=== PATIENT | male | born 1950 | race Caucasian/White ===

== ENCOUNTER 2019-05-19 19:16 | Inpatient (IN) | payer BC, OTHER ==
[~2019-05-19] VITALS: Ht 172.7 cm; Wt 82.6 kg
[~2019-05-19 19:16] MED LIST: BUPR-96 PO; BUPR300T52 PO; ESCI20TA PO; GABA600T PO; QUET100T PO; QUET400T PO; THYROXINE PO
[2019-05-19] MEDS ORDERED: LORAZEPAM 2 MG/1 ML VIAL IV ONE (19:30)
[2019-05-19] MEDS ORDERED: IV NORMAL SALINE 1000 ML BAG IV ONE ×2 (19:30→21:00)
[2019-05-19] MEDS ORDERED: DEXTROSE 50% 50 ML DISP.SYRIN ONE (19:32)
[2019-05-19] MEDS ORDERED: DEXTROSE 50% 50 ML DISP.SYRIN IV ONE (19:45)
[2019-05-19 19:48] LABS: BASOPHILS % (AUTO) 0.2 % (0.0-2.0); HEMOGLOBIN 13.2 g/dL (12.5-16.3); LYMPHOCYTES # (AUTO) 1.1 K/uL (20.0-40.0); MEAN CORPUSCULAR HEMOGLOBIN 33.8 uug (23.8-33.4); MEAN CORPUSCULAR HGB CONC 33 g/dL (32.5-36.3); MEAN CORPUSCULAR VOLUME 102.6 fL (73.0-96.2); MONOCYTES # (AUTO) 0.5 K/uL (2.0-10.0); MONOCYTES % (AUTO) 4.9 % (0.0-11.0); NEUTROPHILS # (AUTO) 8.4 K/uL (1.8-8.9); NEUTROPHILS % (AUTO) 83.9 % (38.5-71.5); PLATELET COUNT (AUTO) 333 K/uL (152-348); WHITE BLOOD COUNT (AUTO) 10.1 K/uL (3.6-10.2)
[2019-05-19] MEDS ORDERED: LORAZEPAM 2 MG/1 ML VIAL ONE ×2 (19:48→23:53)
[2019-05-19 19:59] LABS: *BILIRUBIN,URIN 1+ (NEGATIVE); *BLOOD, URINE 2+ (NEGATIVE); *COLOR,URINE YELLOW (YELLOW); *KETONES,URINE 4+ (NEGATIVE); *UROBILINOGEN,URINE 0.2 E.U./dl (NORMAL); LEUKOCYTE ESTERASE ,URINE NEGATIVE (NEGATIVE); NITRITE, URINE NEGATIVE (NEGATIVE); PH,URINE 5.5 (5.0-8.0); UGLUCOSE NEGATIVE (NEGATIVE)
[2019-05-19 19:59] LABS: ALANINE AMINOTRANSFERASE 29 U/L (16-63); ALKALINE PHOSPHATASE 137 U/L (50-136); ASPARTATE AMINOTRANSFERASE 26 U/L (15-37); BILIRUBIN,DIRECT 0.1 mg/dL (0.0-0.2); BILIRUBIN,TOTAL 0.5 mg/dL (0.2-1.0); CHLORIDE 106 mmol/L (98-107); CREATININE 1.4 mg/dL (0.6-1.3); GLUCOSE 295 mg/dL (74-106); POTASSIUM 4.4 mmol/L (3.5-5.1); TOTAL PROTEIN, SERUM 7.6 g/dL (6.4-8.2); UREA NITROGEN, BLOOD 16 mg/dL (7-18)
[2019-05-19 20:01] LABS: CARBON DIOXIDE 9 mmol/L (21-32); ETHANOL < 3 MG/DL (0-0)
--- NOTE | 2019-05-19 20:01 | NUR ---
received critical lab from [employer]. Dictated lab to Dr. Bhandari of [facility] Bhandari notified and aware.
[2019-05-19 20:02] LABS: ACETAMINOPHEN < 2.0 ug/mL (10-30)
--- NOTE | 2019-05-19 20:05 | NUR ---
RECEIVED INTO ROOM 2A ALERT RESPONSIVE TO YES NO QUESTIONS DENIES HAVING ANY PAIN BREATHING NONLABORED SKIN COLOR PALE SKIN MOIST.
[2019-05-19 20:14] LABS: *AMPHETAMINE, URINE NEGATIVE (NEGATIVE); *BARBITURATE, URINE NEGATIVE (NEGATIVE); *CANNABINOID, URINE NEGATIVE (NEGATIVE); *COCCAINE, URINE NEGATIVE (NEGATIVE); *OPIATE, URINE NEGATIVE (NEGATIVE); *PHENCYCLIDINE SCREEN,URINE NEGATIVE (NEGATIVE)
[2019-05-19 20:18] LABS: *CLARITY,URINE SLIGHTLY HAZY (CLEAR)
[2019-05-19 20:20] LABS: MUCUS,URINE MODERATE /LPF (0-FEW); URINE AMORPHOUS URATE MODERATE /HPF; WBC,URINE 0-3 /HPF (0-3)
[2019-05-19 20:29] LABS: THYROID STIMULATING HORMONE 1.541 mIU/mL (0.358-3.740)
[2019-05-19] MEDS ORDERED: PIPERACILLIN SODIUM/TAZOBACTAM 3.375 G in IV DEXTROSE 5% 50 ML IV ONE (20:30)
--- NOTE | 2019-05-19 20:30 | NUR ---
PATIENT CONTINUES TO BE ALERT WILL RESPOND TO HIS NAME UNABLE TO STATE WHERE HE IS ,OR WHAT HAPPENED TO HIM TODAY THAT BROUGHT HIM TO THE ER.
--- NOTE | 2019-05-19 20:46 | NUR ---
Unable to get list of patient's medications. Needs follow up with spouse.
[2019-05-19 20:53] LABS: ABG BASE EXCESS -15.2 mmol/L; ABG PCO2 19.3 mmHg (35.0-45.0); ABG PH 7.288 (7.350-7.450); ABG SITE RIGHT BRACHIAL; ABG TOTAL HEMOGLOBIN 14.1 G/dL (13.5-18.0); COHb 1.2 % (0.5-1.5); MetHb 0.2 % (0.0-1.5); O2Hb 96.2 % (94.0-97.0)
[2019-05-19] MEDS ORDERED: IV D5W-0.45% NS +20 KCL 1,000 ML IV ONE ×2 (20:59→21:00)
[2019-05-19] MEDS ORDERED: INSULIN REGULAR, HUMAN 100 UNITS in IV NORMAL SALINE 100 ML IV ONE ×2 (21:00)
--- NOTE | 2019-05-19 21:13 | NUR ---
Dr. Bhandari on panel call with Dr. Linda. Patient accepted for admission to CCU, diagnosis DKA.
--- NOTE | 2019-05-19 21:15 | NUR ---
Per Checkroom Chief, CCU is closed, patient to stay in ER until a CCU nurse is available.
[2019-05-19] MEDS ORDERED: INSULIN REGULAR, HUMAN 300 UNIT/3 ML VIAL ONE (21:24)
[2019-05-19] MEDS ORDERED: MODA100T14 PO (21:40)
[2019-05-19] MEDS ORDERED: OXYC-133 PO (21:40)
[2019-05-19] MEDS ORDERED: LAMO200T10 PO (21:40)
--- NOTE | 2019-05-19 21:40 | NUR ---
MEDICATION RECONCILIATION NOTE: Spouse was able to bring in medication bottles from home. She states that there may be other medications but she is not sure. Unable to verify if Seroquel (AM dose), and Wellbutrin (PM dose) listed on previous reconciliation.
[2019-05-19] MEDS ORDERED: IV D5W 1000ML 1,000 ML IV ONE (22:15)
[2019-05-19] MEDS ORDERED: ONDANSETRON 4 MG/2 ML VIAL IV PRN (23:00)
[2019-05-19] MEDS ORDERED: Z GUARD REMEDY PASTE 57 GM TUBE TOP PRN (23:00)
[2019-05-19 23:04] LABS: CREATININE 1.4 mg/dL (0.6-1.3)
[2019-05-19 23:13] LABS: ABG HCO3 10.8 mmol/L; ABG PH 7.331 (7.350-7.450); ABG SITE RIGHT BRACHIAL; ABG TOTAL HEMOGLOBIN 12.5 G/dL (13.5-18.0); MetHb 0.2 % (0.0-1.5); O2Hb 95.6 % (94.0-97.0)
[2019-05-19] MEDS ORDERED: INSULIN REGULAR, HUMAN 100 UNIT in IV NORMAL SALINE 99 ML IV PRN ×2 (23:15)
--- NOTE | 2019-05-19 23:15 | NUR ---
PATIENT HAS COMPLETED 1 LITER D5.45+ 20KCL AND 2 LITERS 0.9NS. RECEIVING INSULIN DRIP @1.6 UNITS/HR. LABS REDRAWN.
--- NOTE | 2019-05-19 23:43 | NUR ---
PATIENT ADMITTED TO ICU STATUS
[2019-05-20] VITALS (24 sets, daily range): BP systolic 108–159; BP diastolic 58–90
[2019-05-20] MEDS ORDERED: LORAZEPAM 2 MG/1 ML VIAL IV ONE
--- NOTE | 2019-05-20 00:24 | NUR ---
REPORT GIVEN TO RENNY WAYNE TO KARLIE WITH CARE FOR PATIENT.
[2019-05-20 01:27] LABS: CARBON DIOXIDE 17 mmol/L (21-32); CHLORIDE 111 mmol/L (98-107); CREATININE 1.4 mg/dL (0.6-1.3); GLUCOSE 101 mg/dL (74-106); POTASSIUM 3.7 mmol/L (3.5-5.1); UREA NITROGEN, BLOOD 14 mg/dL (7-18)
[2019-05-20] MEDS: IV D5 1/2 NS 1000 ML 1,000 ML IV PRN ×3 (01:51→19:01)
--- NOTE | 2019-05-20 03:00 | NUR ---
Unable to insert Wang.
--- NOTE | 2019-05-20 04:00 | NUR ---
Answers all questions saying 'yes.' Does not follow directions. Very active in bed, removing equipment.
[2019-05-20 05:33] LABS: BASOPHILS # (AUTO) 0.1 K/uL (0.0-8.0); BASOPHILS % (AUTO) 0.9 % (0.0-2.0); EOSINOPHILS % (AUTO) 0.3 % (0.0-7.0); HEMATOCRIT 36.7 % (36.7-47.1); HEMOGLOBIN 12.3 g/dL (12.5-16.3); LYMPHOCYTES # (AUTO) 1.6 K/uL (20.0-40.0); LYMPHOCYTES % (AUTO) 14.3 % (20.5-51.5); MEAN CORPUSCULAR HEMOGLOBIN 33.4 uug (23.8-33.4); MEAN CORPUSCULAR HGB CONC 34 g/dL (32.5-36.3); MEAN CORPUSCULAR VOLUME 99.5 fL (73.0-96.2); MONOCYTES % (AUTO) 9.2 % (0.0-11.0); NEUTROPHILS # (AUTO) 8.2 K/uL (1.8-8.9); NEUTROPHILS % (AUTO) 75.3 % (38.5-71.5); PLATELET COUNT (AUTO) 341 K/uL (152-348); RED BLOOD CELL COUNT(AUTO) 3.69 MIL/uL (4.06-5.63); WHITE BLOOD COUNT (AUTO) 10.9 K/uL (3.6-10.2)
[2019-05-20 05:49] LABS: BILIRUBIN,TOTAL 0.4 mg/dL (0.2-1.0); CREATININE 1.2 mg/dL (0.6-1.3); MAGNESIUM 1.8 mg/dL (1.8-2.4); POTASSIUM 3.8 mmol/L (3.5-5.1); TOTAL PROTEIN, SERUM 7.4 g/dL (6.4-8.2)
[2019-05-20 06:11] LABS: THYROID STIMULATING HORMONE 2.071 mIU/mL (0.358-3.740)
--- NOTE | 2019-05-20 08:00 | NUR ---
Report received from RENNY Newby.Pt Remains in bilateral soft restraints ,pulling cables from monitor out,trying to get out of bed.Move all extremities.No neuro deficit noted.Pt answered "yes" to every question.Will continue to monitor.
[2019-05-20] MEDS: LORAZEPAM 2 MG/1 ML VIAL IV PRN ×4 (08:46→22:10)
--- NOTE | 2019-05-20 10:00 | NUR ---
Seen,examined by .
[2019-05-20] MEDS ORDERED: HALOPERIDOL LACTATE 5 MG/1 ML VIAL IM PRN (10:15)
[2019-05-20] MEDS: POTASSIUM PHOSPHATE MM 7.5 MMOL in IV DEXTROSE 5% 100 ML IV SCH ×2 (10:53→14:00)
--- NOTE | 2019-05-20 12:20 | NUR ---
Seen,examined by .
[2019-05-20] MEDS: FOLIC ACID 1 MG in IV DEXTROSE 5% 50 ML IV SCH (12:39)
[2019-05-20] MEDS: THIAMINE HCL INJ 100 MG in IV DEXTROSE 5% 50 ML IV SCH (12:39)
--- NOTE | 2019-05-20 13:50 | NUR ---
Pt ex at bedside.Updated on pt status.
--- NOTE | 2019-05-20 14:00 | NUR ---
Pt noted with agitation prior to urination.Updated .
[2019-05-21] VITALS (25 sets, daily range): BP systolic 95–198; BP diastolic 43–112
[2019-05-21] MEDS: LORAZEPAM 2 MG/1 ML VIAL IV PRN ×6 (01:56→23:12)
[2019-05-21] MEDS: IV D5 1/2 NS 1000 ML 1,000 ML IV PRN ×2 (02:36→10:32)
[2019-05-21] MEDS: hydrALAZINE HCL 20 MG/1 ML VIAL IV PRN ×4 (02:50→23:43)
--- NOTE | 2019-05-21 09:30 | NUR ---
Pt noted to be extremely agitated, restless trying to get oob. IV ativan given PRN as ordered.
--- NOTE | 2019-05-21 09:44 | NUR ---
Reassessment: Pt noted to be more calm, relaxed. IV ativan proven effective. Will continue to monitor.
--- NOTE | 2019-05-21 09:55 | NUR ---
Dr. Linda here to see pt. Full report given. New orders received.
[2019-05-21 10:43] LABS: BASOPHILS # (AUTO) 0.1 K/uL (0.0-8.0); BASOPHILS % (AUTO) 0.9 % (0.0-2.0); EOSINOPHILS % (AUTO) 0.3 % (0.0-7.0); HEMATOCRIT 36.6 % (36.7-47.1); HEMOGLOBIN 12.2 g/dL (12.5-16.3); LYMPHOCYTES # (AUTO) 2.1 K/uL (20.0-40.0); LYMPHOCYTES % (AUTO) 19.9 % (20.5-51.5); MEAN CORPUSCULAR HEMOGLOBIN 33.5 uug (23.8-33.4); MEAN CORPUSCULAR HGB CONC 33 g/dL (32.5-36.3); MEAN CORPUSCULAR VOLUME 100.2 fL (73.0-96.2); MONOCYTES # (AUTO) 1.4 K/uL (2.0-10.0); NEUTROPHILS # (AUTO) 6.9 K/uL (1.8-8.9); NEUTROPHILS % (AUTO) 65.9 % (38.5-71.5); PLATELET COUNT (AUTO) 188 K/uL (152-348); RED BLOOD CELL COUNT(AUTO) 3.65 MIL/uL (4.06-5.63); WHITE BLOOD COUNT (AUTO) 10.5 K/uL (3.6-10.2)
[2019-05-21 10:54] LABS: BILIRUBIN,TOTAL 0.6 mg/dL (0.2-1.0); CREATININE 0.7 mg/dL (0.6-1.3); POTASSIUM 3.2 mmol/L (3.5-5.1); TOTAL PROTEIN, SERUM 6.6 g/dL (6.4-8.2)
[2019-05-21] MEDS: FOLIC ACID 1 MG in IV DEXTROSE 5% 50 ML IV SCH (11:19)
[2019-05-21] MEDS: THIAMINE HCL INJ 100 MG in IV DEXTROSE 5% 50 ML IV SCH (12:59)
--- NOTE | 2019-05-21 13:00 | NUR ---
Dr. Quiroz (psych) here to see pt. Full report given. No new orders received. Addendum: 05/21/19 at 1314 by JORGE RODRIGUEZ RN New orders received.
[2019-05-21] MEDS: OLANZAPINE 10 MG VIAL IM PRN ×2 (13:56→19:11)
--- NOTE | 2019-05-21 14:22 | NUR ---
At 1356, pt noted to severely restless, agitated trying to get oob. IM Zyprexa prn given as ordered. Reassessment: Pt noted to be more calm, relaxed. IM Zyprexa proven effective. Will continue to monitor.
[2019-05-21] MEDS: VALPROATE SODIUM IV 250 MG in IV DEXTROSE 5% 100 ML IV SCH ×2 (14:33→22:28)
[2019-05-21] MEDS ORDERED: SODIUM PHOSPHATE MM 15 MM in IV DEXTROSE 5% 250 ML IV ONE (17:00)
--- NOTE | 2019-05-21 19:09 | NUR ---
Dr. Snell here to see pt. Full report given. New orders received. Pt to have spinal tap tomorrow per .
--- NOTE | 2019-05-21 19:12 | NUR ---
Per Dr. Channing scanlon to give IM Zyprexa dose now.
--- NOTE | 2019-05-21 19:19 | NUR ---
Pt noted to be severely restless, agitated trying to get oob. IM Zypreza given prn as ordered. Will reassess for effectiveness.
--- NOTE | 2019-05-21 19:25 | NUR ---
Report received from Sherwin LAWSON. Seen by Dr. Snell; plan of care discussed. 's telephone number given to MD. Patient remains extremely restless, confused. No appropriate verbal responses. With 4 points soft restraints for safety.
--- NOTE | 2019-05-21 19:40 | NUR ---
Radha here. Informed of Dr. Snell's plan of care. Consent for both MRI and Spinal tap signed by her.
--- NOTE | 2019-05-21 20:14 | NUR ---
Medicated with Ativan for extreme restlessness. [employer] aware.
--- NOTE | 2019-05-21 21:00 | NUR ---
Incontinent of large brown BM. Ativan IV with little effect. Bath given. Patient remains very confused; only says "okay, okay" when asked and talked to. Safety and fall precautions maintained.
--- NOTE | 2019-05-21 21:45 | NUR ---
Spoke to Justin @ [facility] re: MRI order. Informed of patient 's status and Spinal tap in am.
[2019-05-21] MEDS: POTASSIUM CHLORIDE 50 ML IV SCH (23:42)
[2019-05-22] VITALS (21 sets, daily range): BP systolic 127–169; BP diastolic 56–99
[2019-05-22] MEDS: POTASSIUM CHLORIDE 50 ML IV SCH ×9 (00:47→22:11)
[2019-05-22] MEDS: LORAZEPAM 2 MG/1 ML VIAL IV PRN ×5 (01:29→20:12)
[2019-05-22 05:13] LABS: CARBON DIOXIDE 24 mmol/L (21-32); CHLORIDE 109 mmol/L (98-107); CREATININE 0.6 mg/dL (0.6-1.3); GLUCOSE 111 mg/dL (74-106); PHOSPHOROUS 2.5 mg/dL (2.5-4.9); POTASSIUM 2.9 mmol/L (3.5-5.1); UREA NITROGEN, BLOOD 8 mg/dL (7-18)
[2019-05-22] MEDS: IV D5 1/2 NS 1000 ML 1,000 ML IV PRN (05:30)
[2019-05-22] MEDS: VALPROATE SODIUM IV 250 MG in IV DEXTROSE 5% 100 ML IV SCH ×2 (06:37→14:43)
--- NOTE | 2019-05-22 08:34 | NUR ---
Dr. Linda here to see pt. Full report given. New orders received.
[2019-05-22] MEDS: OLANZAPINE 10 MG VIAL IM PRN (10:09)
--- NOTE | 2019-05-22 10:17 | NUR ---
Pt noted to be severely agitated, restless trying to get oob. IM zyprexa given prn as ordered. Will reassess for effectiveness. Full SBAR report also given to ambulance. Pt to have MRI done at [place].
--- NOTE | 2019-05-22 10:45 | NUR ---
Pt left with ambulance for MRI brain at [place]. JEROME cravenl.
--- NOTE | 2019-05-22 11:43 | NUR ---
Pt returned from MRI VSS wnl. Unable to perform MRI at this time d/t pt's severe agitation and restlessness. Dr. Snell contacted and made aware.
[2019-05-22] MEDS: THIAMINE HCL INJ 100 MG in IV DEXTROSE 5% 50 ML IV SCH (13:31)
[2019-05-22] MEDS: FOLIC ACID 1 MG in IV DEXTROSE 5% 50 ML IV SCH (14:04)
--- NOTE | 2019-05-22 15:33 | NUR ---
Spoke with Dr. Snell on the telephone. MD motta to give IV Ativan 2mg in preparation for LP procedure.
[2019-05-22] MEDS ORDERED: LIDOCAINE HCL 1% 20 ML VIAL ONE (15:42)
--- NOTE | 2019-05-22 16:00 | NUR ---
LP puncture performed at the bedside by Dr. Snell unsuccessful. Pt to have XR lumbar puncture with radiologist.
--- NOTE | 2019-05-22 16:34 | NUR ---
Spoke with Dr. Quiroz on the telephone. Full report given. New orders received.
[2019-05-22 18:26] LABS: CREATININE 0.7 mg/dL (0.6-1.3); MAGNESIUM 1.3 mg/dL (1.8-2.4); POTASSIUM 3.3 mmol/L (3.5-5.1)
[2019-05-22] MEDS: hydrALAZINE HCL 20 MG/1 ML VIAL IV PRN (19:40)
[2019-05-22] MEDS: MAGNESIUM SULFATE/D5W 100 ML IV SCH ×2 (21:11→22:56)
[2019-05-22] MEDS: VALPROATE SODIUM IV 500 MG in IV DEXTROSE 5% 100 ML IV SCH (21:30)
[2019-05-23] VITALS (21 sets, daily range): BP systolic 114–183; BP diastolic 71–103
[2019-05-23] MEDS: POTASSIUM CHLORIDE 50 ML IV SCH ×6 (00:04→12:00)
--- NOTE | 2019-05-23 01:00 | NUR ---
Noted extending light rash noted to entire back; see photograph.
[2019-05-23] MEDS: LORAZEPAM 2 MG/1 ML VIAL IV PRN ×3 (01:13→11:49)
[2019-05-23] MEDS: IV D5 1/2 NS 1000 ML 1,000 ML IV PRN ×3 (02:07→12:43)
[2019-05-23] MEDS: hydrALAZINE HCL 20 MG/1 ML VIAL IV PRN ×2 (03:26→16:24)
[2019-05-23 04:56] LABS: BASOPHILS % (AUTO) 0.4 % (0.0-2.0); EOSINOPHILS # (AUTO) 0.1 K/uL (0.0-0.7); EOSINOPHILS % (AUTO) 0.9 % (0.0-7.0); HEMATOCRIT 34.4 % (36.7-47.1); HEMOGLOBIN 11.6 g/dL (12.5-16.3); LYMPHOCYTES % (AUTO) 18.6 % (20.5-51.5); MEAN CORPUSCULAR HEMOGLOBIN 32.9 uug (23.8-33.4); MEAN CORPUSCULAR HGB CONC 34 g/dL (32.5-36.3); MEAN CORPUSCULAR VOLUME 97.7 fL (73.0-96.2); MONOCYTES # (AUTO) 1.4 K/uL (2.0-10.0); MONOCYTES % (AUTO) 12.7 % (0.0-11.0); NEUTROPHILS # (AUTO) 7.2 K/uL (1.8-8.9); NEUTROPHILS % (AUTO) 67.4 % (38.5-71.5); PLATELET COUNT (AUTO) 275 K/uL (152-348); RED BLOOD CELL COUNT(AUTO) 3.52 MIL/uL (4.06-5.63); WHITE BLOOD COUNT (AUTO) 10.7 K/uL (3.6-10.2)
[2019-05-23 05:47] LABS: ALANINE AMINOTRANSFERASE 49 U/L (16-63); ALKALINE PHOSPHATASE 131 U/L (50-136); ASPARTATE AMINOTRANSFERASE 52 U/L (15-37); BILIRUBIN,TOTAL 0.8 mg/dL (0.2-1.0); CARBON DIOXIDE 25 mmol/L (21-32); CHLORIDE 108 mmol/L (98-107); CREATININE 0.6 mg/dL (0.6-1.3); GLUCOSE 119 mg/dL (74-106); PHOSPHOROUS 2.5 mg/dL (2.5-4.9); POTASSIUM 3.4 mmol/L (3.5-5.1); TOTAL PROTEIN, SERUM 6.9 g/dL (6.4-8.2); UREA NITROGEN, BLOOD 7 mg/dL (7-18)
[2019-05-23] MEDS: VALPROATE SODIUM IV 500 MG in IV DEXTROSE 5% 100 ML IV SCH ×3 (05:55→21:31)
--- NOTE | 2019-05-23 07:15 | NUR ---
Received report from cleaning matron nurse, patient in bed awake thrashing in bed, on wrist restraints and mittens. Sitter at bedside for safety. Monitor shows sinus rhythm, when patient is still. [id number] 100% on room air. Will continue to monitor. IV fluids running.
--- NOTE | 2019-05-23 08:00 | NUR ---
Dr. Linda assessment of patient.
--- NOTE | 2019-05-23 08:45 | NUR ---
Received orders from Dr. Quiroz for xyprexa SL 5mg once after results of stat ekg given to her.
[2019-05-23] MEDS ORDERED: OLANZAPINE ZYDIS 5 MG TAB.RAPDIS SL STA (08:51)
--- NOTE | 2019-05-23 11:05 | NUR ---
Code owen called due to patient climbing out of bed, pulling at lines.
[2019-05-23] MEDS: THIAMINE HCL INJ 100 MG in IV DEXTROSE 5% 50 ML IV SCH (12:02)
[2019-05-23] MEDS: FOLIC ACID 1 MG in IV DEXTROSE 5% 50 ML IV SCH (12:02)
--- NOTE | 2019-05-23 13:00 | NUR ---
Dr Quiroz saw patient.
[2019-05-23] MEDS: OLANZAPINE ZYDIS 5 MG TAB.RAPDIS SL SCH ×2 (13:02→16:53)
--- NOTE | 2019-05-23 13:10 | NUR ---
Patient aggitated again and trying to climb out of bed and pulling at lines. Security called to help patient back to bed safely.
--- NOTE | 2019-05-23 16:25 | NUR ---
Patient reported being sick to his stomach zofran to be given.
--- NOTE | 2019-05-23 18:38 | NUR ---
Patient continues to be confused, but with more of a vocabulary noted than this morning. Patient recognizes by name. Patient has difficulty urinating and becomes aggressive and thrashing around in bed when he needs to urinate. Patient had multiple episodes of confusion and trying to pull lines and get out of bed. During one episode patient noted to not be able to stand independently and stumbling once he was up on his feet despite being able to get up to the side of the bed. Vitals are stable at this time, afebrile throughout the day and patient tolerating zyprexa sublingual. Frequent reorientation and skin care provided throughout shift.
[2019-05-23] MEDS: OLANZAPINE ZYDIS 5 MG TAB.RAPDIS SL PRN (21:58)
[2019-05-24] VITALS (10 sets, daily range): BP systolic 114–161; BP diastolic 56–111
--- NOTE | 2019-05-24 00:02 | NUR ---
PATIENT SITTING IN ROOM, WATCHING PATIENT, PATIENT SUDDENLY AWAKENED AND REQUESTED TO GO TO BATHROOM. LAST NIGHT PATIENT EXPERIENCED MULTIPLE EPISODES OF URINARY URGENCY. DURING THIS TIME, PATIENT REMOVED HIS HOSPITAL GOWN, WELL MONITORING WIRES FOR HOSPITAL EQUIPMENT. UPON ATTEMPTING TO REAPPLY WIRES, PATIENT BECAME FRUSTRATED AND STATED " NO, FOLLOWED BY F CK ! " WHILE ATTEMPTING TO GET OF BED, PATIENT VERY UNSTEADY ON HIS FEET, I ATTEMPTED TO LIGHTLY HOLD PATIENTS ELBOW TO PREVENT FROM FALLING, PATIENT STATED " DONT' TOUCH ME " CODE KRISTAL HAD TO BE CALLED TO PREVENT INJURY TO PATIENT AND PROVIDE ASSISTANCE TO GET PATIENT BACK INTO BED.
[2019-05-24] MEDS: OLANZAPINE 10 MG VIAL IM PRN (01:16)
--- NOTE | 2019-05-24 04:30 | NUR ---
PATIENT AWAKE THIS MORNING AND ALERT AND ORIENTED X 2. PATIENT REQUESTING FOR CLOTHES, COFFEE AND WANTING TO CALL . ALSO VERBALZED WANTING TO GO HOME NOW. PATIENT REORIENTED TO TIME, AND PLAN OF CARE. REQUIRED CONSTANT REDIRECTION TO PLAN OF CARE.
[2019-05-24 05:19] LABS: BASOPHILS % (AUTO) 0.3 % (0.0-2.0); EOSINOPHILS # (AUTO) 0.3 K/uL (0.0-0.7); EOSINOPHILS % (AUTO) 3.1 % (0.0-7.0); HEMATOCRIT 35.2 % (36.7-47.1); LYMPHOCYTES # (AUTO) 2.3 K/uL (20.0-40.0); MEAN CORPUSCULAR HEMOGLOBIN 33.5 uug (23.8-33.4); MEAN CORPUSCULAR HGB CONC 34 g/dL (32.5-36.3); MEAN CORPUSCULAR VOLUME 98.6 fL (73.0-96.2); MONOCYTES # (AUTO) 1.1 K/uL (2.0-10.0); MONOCYTES % (AUTO) 10.5 % (0.0-11.0); NEUTROPHILS # (AUTO) 6.4 K/uL (1.8-8.9); NEUTROPHILS % (AUTO) 63.1 % (38.5-71.5); PLATELET COUNT (AUTO) 283 K/uL (152-348); RED BLOOD CELL COUNT(AUTO) 3.57 MIL/uL (4.06-5.63); WHITE BLOOD COUNT (AUTO) 10.1 K/uL (3.6-10.2)
[2019-05-24] MEDS: VALPROATE SODIUM IV 500 MG in IV DEXTROSE 5% 100 ML IV SCH ×3 (06:00→22:12)
[2019-05-24] MEDS: OLANZAPINE ZYDIS 5 MG TAB.RAPDIS SL PRN (06:59)
[2019-05-24] MEDS: LORAZEPAM 2 MG/1 ML VIAL IV PRN ×2 (07:08→22:30)
--- NOTE | 2019-05-24 07:08 | NUR ---
Received report from night filler nurse as patient was flailing and trying to get out of bed and being verbally abusive and aggitated. Ativan given to relieve aggitation. Patients vitals recorded, and patient was settled back into bed. Patient is on room air satting 100%, BP 157/74, pulse 68 Respirations 16.
[2019-05-24] MEDS: hydrALAZINE HCL 20 MG/1 ML VIAL IV PRN (08:52)
[2019-05-24 09:00] LABS: CREATININE 0.7 mg/dL (0.6-1.3); POTASSIUM 4.1 mmol/L (3.5-5.1)
[2019-05-24 09:03] LABS: PHOSPHOROUS 3.9 mg/dL (2.5-4.9)
[2019-05-24] MEDS: OLANZAPINE ZYDIS 5 MG TAB.RAPDIS SL SCH ×3 (09:18→17:13)
[2019-05-24] MEDS ORDERED: LORAZEPAM 2 MG/1 ML VIAL IV ONE (10:00)
--- NOTE | 2019-05-24 10:00 | NUR ---
Patient taken to radiology for lumbar puncture with Dr. Raza accompanied by this publications writer, respiratory and two Radiology techs. Vitals stable but patient anxious and agitated for procedure. Order received for 2mg ativan from Dr. Snell.
--- NOTE | 2019-05-24 10:50 | NUR ---
Patient returned to CCU, vitals stable, patient alert/oriented x2. All needs met at this time.
--- NOTE | 2019-05-24 10:57 | NUR ---
Patient seen by speech therapy.
[2019-05-24] MEDS: FOLIC ACID 1 MG in IV DEXTROSE 5% 50 ML IV SCH (11:21)
[2019-05-24] MEDS: THIAMINE HCL INJ 100 MG in IV DEXTROSE 5% 50 ML IV SCH (11:22)
[2019-05-24 11:24] LABS: CSF PROTEIN 90 mg/dL (15-45)
[2019-05-24 11:25] LABS: CSF GLUCOSE 53 mg/dL (40-70)
[2019-05-24] MEDS: METOPROLOL TARTRATE 25 MG TABLET PO SCH ×2 (12:17→21:00)
--- NOTE | 2019-05-24 12:45 | NUR ---
Patient seen by Dr. Quiroz. Patient sleeping and didn't respond much.
--- NOTE | 2019-05-24 14:00 | NUR ---
Patient had small amount of his lunch. Tolerated well, but did not have much of an appetite.
[2019-05-24] MEDS: KETOROLAC TROMETHAMINE 15 MG INJ IVP PRN (17:12)
--- NOTE | 2019-05-24 19:27 | NUR ---
PATIENT TRANSFERRED TO MED/SURG FLOOR AND REPORT GIVEN TO TAMMY. PATIENT IS ON ROOM AIR. PATIENT IS IN BED, NO DISTRESS NOTED AT THIS TIME, BED IN LOW POSITION, SIDE RAILS UP X2, SITTER AT BEDSIDE. IV FLUIDS ENDORSED TO NOVELTY WORKER NURSE. IMPULSIVE BEHAVIOR EXPLAINED TO SITTER AND NURSE.
--- NOTE | 2019-05-24 20:00 | NUR ---
Received patient in bed. Slightly restless, but able to redirect. Sitter at bedside. Full report received from ICU nurse. No signs of active distress. Will continue to reinforce relaxation techniques. Fall and safety precautions maintained.
[2019-05-24] MEDS: OMEGA-3 FATTY ACIDS/FISH OIL CAPSULE PO SCH (21:00)
[2019-05-24] MEDS: ATORVASTATIN 20 MG TABLET PO SCH (21:00)
--- NOTE | 2019-05-24 21:00 | NUR ---
Pt noted to have pulled out his midline on R AC. Reinserted new peripheral IV site on L forearm 20 G. Continued relaxation techniques. Sitter to continue teaching and monitoring.
[2019-05-24] MEDS: IV D5 1/2 NS 1000 ML 1,000 ML IV PRN (21:02)
--- NOTE | 2019-05-24 22:30 | NUR ---
Pt continues to be restless in bed. Unable to redirect at this time, verbalizing plans for elopement. Lorazepam 1mg given. Will continue to monitor.
--- NOTE | 2019-05-25 01:45 | NUR ---
Pt continues to be intermittently laying in bed and being restless and wanting to get out of bed. Assisted to bathroom, with one person standby assist. Noted with severe pain during movement and ambulation. Assisted back to bed. Remains unable to keep still. Ativan and Toradol will be administered as ordered.
[2019-05-25] MEDS: LORAZEPAM 2 MG/1 ML VIAL IV PRN ×2 (01:56→05:12)
[2019-05-25] MEDS: KETOROLAC TROMETHAMINE 15 MG INJ IVP PRN (01:56)
[2019-05-25 04:00] VITALS: BP 140/75
[2019-05-25] MEDS: VALPROATE SODIUM IV 500 MG in IV DEXTROSE 5% 100 ML IV SCH (05:07)
--- NOTE | 2019-05-25 05:15 | NUR ---
Pt given another dose of Ativan 1 mg at this time due to continued restlessness in bed. Pt did not sleep all night. Will monitor effectiveness. Sitter continues to monitor and redirect patient's behavior.
--- NOTE | 2019-05-25 06:15 | NUR ---
Pt pulled out IV again accidentally as he was rolling into bed. Complete linen care done. Cleaned patient, kept clean and dry. Inserted new line on R wrist [address], continued teaching to prevent injury. Pt only able to sleep 1-2 hours during the night. Will continue to monitor and endorse accordingly.
[2019-05-25 06:39] LABS: BASOPHILS % (AUTO) 0.3 % (0.0-2.0); EOSINOPHILS # (AUTO) 0.3 K/uL (0.0-0.7); EOSINOPHILS % (AUTO) 3.6 % (0.0-7.0); HEMATOCRIT 35.9 % (36.7-47.1); LYMPHOCYTES # (AUTO) 2.6 K/uL (20.0-40.0); MEAN CORPUSCULAR HEMOGLOBIN 33.2 uug (23.8-33.4); MEAN CORPUSCULAR HGB CONC 33 g/dL (32.5-36.3); MEAN CORPUSCULAR VOLUME 99.3 fL (73.0-96.2); MONOCYTES # (AUTO) 1.1 K/uL (2.0-10.0); NEUTROPHILS # (AUTO) 4.4 K/uL (1.8-8.9); NEUTROPHILS % (AUTO) 52.1 % (38.5-71.5); PLATELET COUNT (AUTO) 290 K/uL (152-348); RED BLOOD CELL COUNT(AUTO) 3.61 MIL/uL (4.06-5.63); WHITE BLOOD COUNT (AUTO) 8.4 K/uL (3.6-10.2)
[2019-05-25 06:49] LABS: BILIRUBIN,TOTAL 0.8 mg/dL (0.2-1.0); CREATININE 0.7 mg/dL (0.6-1.3); PHOSPHOROUS 3.8 mg/dL (2.5-4.9); POTASSIUM 3.6 mmol/L (3.5-5.1); TOTAL PROTEIN, SERUM 6.9 g/dL (6.4-8.2)
--- NOTE | 2019-05-25 07:52 | NUR ---
Received patient in bed. Slightly restless, but able to redirect. Sitter at bedside. Full report received from night warehouse selector nurse. No signs of active distress or sob. Will continue to reinforce relaxation techniques. Fall and safety precautions maintained.
[2019-05-25 08:00] VITALS: BP 158/85
[2019-05-25] MEDS ORDERED: POTASSIUM CHLORIDE 20 MEQ TAB.PRT.SR PO ONE (09:00)
[2019-05-25] MEDS: OMEGA-3 FATTY ACIDS/FISH OIL CAPSULE PO SCH ×2 (09:32→21:23)
[2019-05-25] MEDS: OLANZAPINE ZYDIS 5 MG TAB.RAPDIS SL SCH ×2 (09:32→12:30)
[2019-05-25] MEDS: METOPROLOL TARTRATE 25 MG TABLET PO SCH ×2 (09:35→21:23)
[2019-05-25 12:00] VITALS: BP 138/72
[2019-05-25] MEDS: FOLIC ACID 1 MG TABLET PO SCH (12:30)
[2019-05-25] MEDS: THIAMINE HCL 100 MG TABLET PO SCH (12:30)
--- NOTE | 2019-05-25 13:00 | NUR ---
PT IS RESTING COMFORTABLY. NO ACUTE DISTRESS OR SOB NOTED. PT HAS A 1:1 SITTER FOR SAFETY. PT SOMEWHAT CONFUSED WITH TENDENCY TO REMOVE IV LINE. PT TAKES MEDICATION WITH APPLE SAUCE OR PUDDING. PT IS ON A PUREED DIET. WILL CONTINUE TO MONITOR.
[2019-05-25] MEDS ORDERED: DIVALPROEX 500 MG TABLET.DR PO SCH (14:00)
[2019-05-25] MEDS ORDERED: DIVALPROEX SPRINKLE 125 MG CAP.SPRINK PO SCH (15:30)
[2019-05-25 16:00] VITALS: BP 137/76
[2019-05-25] MEDS: BENZTROPINE MESYLATE 0.5 MG TABLET PO SCH ×2 (17:15→21:18)
[2019-05-25] MEDS: DIVALPROEX SPRINKLE 125 MG CAP.SPRINK PO SCH ×2 (17:15→21:19)
[2019-05-25] MEDS: HALOPERIDOL LACTATE 10 MG/5 ML ORAL SOLUTION UDC PO SCH ×2 (17:15→21:24)
--- NOTE | 2019-05-25 18:00 | NUR ---
PT RESTING COMFORTABLY IN BED. IV SITE CHANGED TO R HAND GAUGE 22. NO ACUTE DISTRESS NOTED NO SOB NOTED. PT HAS A 1:1 SITTER FOR SAFETY. PSYCHIATRIST EVALUATED PT. CALL LIGHT WITHIN REACH. SAFETY MEASURES IMPLEMENTED. WILL GIVE REPORT ACCORDINGLY.
[2019-05-25] MEDS: ATORVASTATIN 20 MG TABLET PO SCH (21:23)
[2019-05-26] MEDS: OLANZAPINE 10 MG VIAL IM PRN (01:05)
--- NOTE | 2019-05-26 01:37 | NUR ---
Unable to scan medication.
--- NOTE | 2019-05-26 01:37 | NUR ---
Zyprexa 10mg vial and sterile water vial.
[2019-05-26] MEDS: OLANZAPINE ZYDIS 5 MG TAB.RAPDIS SL PRN (04:33)
[2019-05-26 05:16] VITALS: BP 156/91
--- NOTE | 2019-05-26 07:30 | NUR ---
Received patient in awake and verbally responsive. No signs of distress noted. No complain of pain or discomfort at this time. No IV access on patient, per RN last night he's been pulling IV last night. On 1:1 sitter for safety. Will continue to monitor.
[2019-05-26 07:47] VITALS: BP 140/80
[2019-05-26] MEDS: DIVALPROEX SPRINKLE 125 MG CAP.SPRINK PO SCH ×3 (08:02→20:29)
[2019-05-26] MEDS: OLANZAPINE ZYDIS 5 MG TAB.RAPDIS SL SCH ×3 (08:03→16:39)
[2019-05-26] MEDS: OMEGA-3 FATTY ACIDS/FISH OIL CAPSULE PO SCH ×2 (08:03→20:29)
[2019-05-26] MEDS: FOLIC ACID 1 MG TABLET PO SCH (08:04)
[2019-05-26] MEDS: METOPROLOL TARTRATE 25 MG TABLET PO SCH ×2 (08:04→20:30)
[2019-05-26] MEDS: THIAMINE HCL 100 MG TABLET PO SCH (08:04)
[2019-05-26 09:06] LABS: *WEST NILE CSF IGG Positive (Negative)
--- NOTE | 2019-05-26 09:21 | NUR ---
Received a call from Dr. Quiroz with Order to Discontinue the haldol and cogentin, and increase Zyprexa to 10 mg at 5pm.
[2019-05-26] MEDS ORDERED: HYDROCODONE/APAP 5-325MG TABLET PO PRN (11:00)
[2019-05-26 11:06] LABS: *WEST NILE CSF IGM Negative (Negative)
[2019-05-26 11:45] VITALS: BP 139/86
[2019-05-26 12:06] LABS: *HSV 1/2 PCR 1DNA CSF Negative (Negative); *HSV 1/2 PCR 2DNA CSF Negative (Negative)
[2019-05-26] MEDS ORDERED: HYDR-4354 PO (15:08)
[2019-05-26 15:30] VITALS: BP 137/67
[2019-05-26] MEDS ORDERED: OLANZAPINE 5 MG TABLET PO SCH ×2 (17:00)
--- NOTE | 2019-05-26 18:25 | NUR ---
Patient in bed, awake and verbally responsive. No signs of Distress noted. No SOB. No complain of Pain of Discomfort. Patient on 1:1 sitter for safety, patient is compliant with his PO medications. MD discontinued IVF d/t patient pull IV and refused to insert IV. All needs attended and met. Seen by Dr. Lagunas with No New Order at this time. Will endorse to Oncoming Nurse.
[2019-05-26 19:50] VITALS: BP 137/81
--- NOTE | 2019-05-26 20:00 | NUR ---
AWAKE, X2,COOPERATIVE AT THE BEGINNING, TOOK SOME MEDICATIONS,,REFUSED SOME MEDICATIONS,SITTER AT BEDSIDE , SLEEPING AT INTERVALS,
[2019-05-26] MEDS: ATORVASTATIN 20 MG TABLET PO SCH (20:30)
[2019-05-27] MEDS: OLANZAPINE 10 MG VIAL IM PRN (03:21)
--- NOTE | 2019-05-27 03:33 | NUR ---
pt started to be agitated,refused po meds ,xyprexa 5m im given, in bed resting comfortably.
--- NOTE | 2019-05-27 05:56 | NUR ---
calmer now resting comfortably
--- NOTE | 2019-05-27 08:00 | NUR ---
Pt. resting in bed alert oriented x1. pt. denies pain/ discomfort. pt. denies SOB/ difficulty breathing. safety measures in place. 1:1 sitter for safety. will continue to monitor pt.
[2019-05-27] MEDS: OMEGA-3 FATTY ACIDS/FISH OIL CAPSULE PO SCH ×2 (09:49→20:21)
[2019-05-27] MEDS: DIVALPROEX SPRINKLE 125 MG CAP.SPRINK PO SCH ×3 (09:49→20:22)
[2019-05-27] MEDS: THIAMINE HCL 100 MG TABLET PO SCH (09:49)
[2019-05-27] MEDS: FOLIC ACID 1 MG TABLET PO SCH (09:50)
[2019-05-27] MEDS: OLANZAPINE ZYDIS 5 MG TAB.RAPDIS SL SCH ×3 (09:51→16:59)
[2019-05-27] MEDS: METOPROLOL TARTRATE 25 MG TABLET PO SCH ×2 (09:51→20:22)
[2019-05-27 10:01] VITALS: BP 127/55
[2019-05-27 16:00] VITALS: BP 123/78
--- NOTE | 2019-05-27 16:08 | NUR ---
Pt. compliant with plan of care. pt. takes all medication. pt. calm and cooperative
--- NOTE | 2019-05-27 19:50 | NUR ---
Pt received asleep, and resting comfortably. Received full report from AM nurse. Pt continues to refuse insertion of IV access. No fluids or ATB due during shift, but risks and benefits explained, still refused. Pt with no sitter, but will be monitored for safety. Will continue to monitor patient and provide needs.
[2019-05-27 20:15] VITALS: BP 122/67
[2019-05-27] MEDS: OLANZAPINE ZYDIS 5 MG TAB.RAPDIS SL PRN (20:22)
[2019-05-27] MEDS: ATORVASTATIN 20 MG TABLET PO SCH (20:22)
[2019-05-28 04:23] VITALS: BP 128/73
--- NOTE | 2019-05-28 05:36 | NUR ---
Pt is awake, and verbally responsive. Able to sleep intermittently throughout the night. Episodes of waking up and walking to nurses station asking for food. Provided all needs. Pt cooperative and easily able to redirect when tries to wander. Fall and safety precautions maintained. VS stable. Pt spoke with several times during shift. Will continue to monitor and endorse accordingly.
[2019-05-28 06:21] LABS: BASOPHILS % (AUTO) 0.5 % (0.0-2.0); EOSINOPHILS # (AUTO) 0.1 K/uL (0.0-0.7); EOSINOPHILS % (AUTO) 1.7 % (0.0-7.0); HEMATOCRIT 38.2 % (36.7-47.1); HEMOGLOBIN 12.6 g/dL (12.5-16.3); LYMPHOCYTES # (AUTO) 2.6 K/uL (20.0-40.0); LYMPHOCYTES % (AUTO) 31.1 % (20.5-51.5); MEAN CORPUSCULAR HEMOGLOBIN 32.9 uug (23.8-33.4); MEAN CORPUSCULAR HGB CONC 33 g/dL (32.5-36.3); MONOCYTES # (AUTO) 1.6 K/uL (2.0-10.0); MONOCYTES % (AUTO) 18.9 % (0.0-11.0); NEUTROPHILS % (AUTO) 47.8 % (38.5-71.5); PLATELET COUNT (AUTO) 320 K/uL (152-348); RED BLOOD CELL COUNT(AUTO) 3.82 MIL/uL (4.06-5.63); WHITE BLOOD COUNT (AUTO) 8.5 K/uL (3.6-10.2)
--- NOTE | 2019-05-28 06:30 | NUR ---
Pt verbalized strong wishes to leave the facility. Despite explanation of importance of staying until MD properly evaluates him and gives proper discharge order, patient agreed. But while nurse is providing care to another patient, patient walked to the lobby and verbalized that he really wants to leave. RN assigned explained again the risks of leaving against medical advice, but patient has decided to sign the AMA form anyway. Pt is alert and oriented x 4, no handicaps noted. Kevan DIGITIZER made aware. Pt left the facility in stable condition.
[2019-05-28 06:55] LABS: EOSINOPHILS % (MANUAL) 1 % (0-8); LYMPHOCYTES % (MANUAL) 28 % (20-40); MONOCYTES % (MANUAL) 19 % (2-10); NEUTROPHILS % (MANUAL) 52 % (42-75)
[2019-05-28 07:30] LABS: BILIRUBIN,TOTAL 0.3 mg/dL (0.2-1.0); CREATININE 0.8 mg/dL (0.6-1.3); MAGNESIUM 2.2 mg/dL (1.8-2.4); PHOSPHOROUS 3.1 mg/dL (2.5-4.9); POTASSIUM 4.6 mmol/L (3.5-5.1); TOTAL PROTEIN, SERUM 7.3 g/dL (6.4-8.2)
== END 2019-05-28 06:25 | disposition left against medical advice (07) | DRG 91 ==
LOC: ER 19:17 → TRANSITION 23:15 → CCU 05-20 01:07 → OBSER 05-20 08:03 → MEDSURG3 05-24 20:09
PROVIDERS: ADMIT Internal Medicine; ATTEND Internal Medicine
DX: G92 Toxic encephalopathy (principal); N17.0 Acute kidney failure with tubular necrosis; E51.2 Wernicke's encephalopathy; E87.2 Acidosis; I45.2 Bifascicular block; B94.8 Sequelae of other specified infectious and parasitic diseases; F31.9 Bipolar disorder, unspecified; E78.5 Hyperlipidemia, unspecified; E86.0 Dehydration; R82.4 Acetonuria; E03.9 Hypothyroidism, unspecified; Z86.73 Personal history of transient ischemic attack (TIA), and cerebral infarction without residual deficits; F17.210 Nicotine dependence, cigarettes, uncomplicated; D53.9 Nutritional anemia, unspecified; E83.39 Other disorders of phosphorus metabolism; K82.8 Other specified diseases of gallbladder; N28.1 Cyst of kidney, acquired; K40.90 Unilateral inguinal hernia, without obstruction or gangrene, not specified as recurrent; I70.0 Atherosclerosis of aorta; E16.2 Hypoglycemia, unspecified; I10 Essential (primary) hypertension; M43.17 Spondylolisthesis, lumbosacral region; Z79.899 Other long term (current) drug therapy; Z20.828 Contact with and (suspected) exposure to other viral communicable diseases
CPT/HCPCS: 36415; 36569; 36600; 51798; 62270; 70030-TC; 70450; 71045; 80164; 80307; 83605; 83735; 84100; 84157; 84443; 85025; 85730; 87040; 87086; 87205; 89051; 93005; A4663; C1758; G0378; G0480; G0480-TC; J0360; J1815; J1885; J2060; J2358; J2405; J3411; J3475; J3480; J3490; J7030; J7050; J7060